=== PATIENT | female | born 1990 | race Caucasian/White ===

== ENCOUNTER 2016-11-16 20:41 | Emergency (ER) | payer OTHER ==
[~2016-11-16] VITALS: Ht 175.3 cm; Wt 113.6 kg
[~2016-11-16 20:41] MED LIST: AMOX-366 PO; PRE20 PO
[2016-11-16 20:54] VITALS: BP 146/94; PULSE 87; RESP 20; O2SAT 100
--- NOTE | 2016-11-16 21:15 | ED.REPORT ---
HPI-Back Pain Under 40 Date of Service Nov 16, 2016 ED Provider: Dr. Eusebio Recinos M.D. A 26 year old female with a history of asthma presents to the ED with lower back pain onset two weeks ago, two days after heavy lifting. The pain initially affected her ambulation but has improved since onset. The patient denies leg numbness, leg tingling, bowel incontinence, urinary incontinence, fever, nausea , vomiting, or other symptoms. She has been seeing a chiropractor intermittently but needs a work note from a physician. She has also been taking Ibuprofen and applying heat pads, with moderate relief. Nursing Notes Stated Complaint: LOW BACK PAIN NO INJURY Chief Complaint: Back Pain or Injury Nursing Notes Reviewed: Yes Allergies: Coded Allergies: No Known Allergies (Verified Allergy, Unknown, 05/13/14) Uncoded Allergies: CITRIC (Adverse Reaction, Unknown, 05/13/14) Scheduled Amoxicillin/Clav K 875-125 mg (Augmentin 875-125 mg) 1 Each Tablet 1 TABLET PO BID Cephalexin (Keflex) 500 Mg Capsule 500 MG PO QID Prednisone (PredniSONE) 20 Mg Tablet 20 MG PO take 2 daily (40mg) Scheduled PRN Cyclobenzaprine (Cyclobenzaprine) 5 Mg Tablet 5 MG PO HS PRN PRN Spasm General Time Seen by MD: 21:14 Chief Complaint Lumbar pain Hx Obtained From: Patient Arrived By: Walk-in Sudden in Onset?: Yes Onset Occurred: More than a week ago... (2 weeks) Symptom Duration: Since onset Caused by: Lifting Location: : Perispinal lumbar Quality: Painful Severity: Current: Moderate Severity: Maximum: Moderate Associated with: Denies: Fever, Inability to walk, Incontinence bladder, Incontinence bowel, Nausea, Numbness both low ext, Tingling left lower ext, Tingling right lower ext, Vomiting, Weakness both lower ext Relieved by: Ibuprofen, Heat Recent Healthcare: No recent doctor visit Past Medical History Past Medical History Obesity Allergic rashes Reports: Asthma Past Surgical History No surgeries Smoking History Light Tobacco Smoker Social History Lives with Mom Alcohol Use: "Social" Drug Use: Denies drug use Occupation [employer] Ambulatory Status Independent Review of Systems Review of Systems Note: - Lower extremity paresthesias Constitutional: Denies: Fever Respiratory: Denies: Non-productive cough, Shortness of breath GI: Denies: Nausea, Vomiting Musculoskeletal: Reports: Back pain (Low) Neurologic: Denies: Bladder dysfunction, Bowel dysfunction, Numbness, Weakness Complete sys rev & neg: except as marked. Physical Exam Initial Vital Signs Vital Signs (First) Date Time Temp Pulse Resp B/P Pulse Ox O2 Delivery O2 Flow Rate FiO2 11/16/16 20:54 37 87 20 146/94 100 11/16/16 23:17 Room Air Initial VS: Reviewed Head / Eyes: Atraumatic, Normocephalic ENT: Conjunctiva normal, No scleral icterus Skin: Warm, Dry, No cyanosis Psychiatric: Mood/affect normal, Behavior normal, Normal thought content General/Constitutional: Awake, Alert Back: No midline vertebral tend Flank / Spine / Paraspinal: Positive: Lumbar paraspinal tend... (Diffuse) Neurologic: Oriented X3, Speech NL Strength 5/5 bilateral lower extremities Interpretation & Diagnostics URINE TEST: Negative URINE DIPSTICK: 1.025 sp gravity 5 pH + Leukocyte esterase Trace Protein Normal Glucose Normal Urobilinogen ~250Ery/ml Occult Blood Otherwise Negative Lab Results Interpretation Test 11/16/16 22:30 Urine Color Yellow (YELLOW) Urine Appearance Slightly cloudy Urine pH 5.5 (5.0-8.0) Urine Specific [place] 1.030 (1.003-1.035) Urine Protein Negativemg/dL (NEG,TRACE) Urine Glucose (UA) Negativemg/dL (NEGATIVE) Urine Ketones Negativemg/dL (NEGATIVE) Urine Occult Blood Large (NEGATIVE) Urine Nitrite Negative (NEGATIVE) Urine Bilirubin Negative (NEGATIVE) Urine Urobilinogen Normalmg/dL (NORMAL) Urine Leukocyte Esterase Trace (NEGATIVE) Urine RBC 3-10/hpf (0-2) Urine WBC 6-10/hpf (0-5) Urine Epithelial Cells Moderate/hpf (NONE-MOD) Urine Crystals None seen (NONE SEEN) Urine Bacteria Moderate/hpf (NONE-FEW) Urine Hyaline Casts None/lpf (NONE) Urine Granular Casts None seen (NONE SEEN) Urine Waxy Casts None seen (NONE SEEN) Urine Red Blood Cell Casts None seen (NONE SEEN) Urine White Blood Cell Casts None seen (NONE SEEN) Urine Mucus Present (None Seen) Urine Trichomonas None seen (NONE SEEN) Urine Yeast None (NONE SEEN) Urinalysis Comment None Urine Culture Reflexed Indicated Hold Urine Received (Received) Re-Eval/Medical Decision Med Decision/Clinical Course 26-year-old female with low back pain 2 weeks after lifting heavy objects. It is improving. Diffuse low back tenderness. No midline tenderness. Neurological exam is normal. No red flag symptoms. Urine is positive for leukocytes. We will treat for UTI. More likely the back pain is related to the heavy lifting. Recommend no heavy lifting 2 weeks or until pain resolves. Flexeril as needed for muscle spasms. Ibuprofen as needed for pain. Follow-up with primary doctor 2-3 days as needed. Re-Evaluation/Progress : Time of Eval: 22:47 Patient Status: Condition improved Re-Evaluation/Progress Note: Discussed with patient lab results, diagnosis, and plan for discharge. Follow-up and return to the ER instructions given. Patient agrees with plan for care and all questions were addressed. Counseled Regarding: Diagnosis, Need for follow-up, When/why to return to ED Discharge & Departure Impression: Primary Impression: Low back pain Chronicity: acute Back pain laterality: unspecified Sciatica presence: without sciatica Qualified Code: M54.5 - Low back pain Additional Impression: UTI (urinary tract infection) Urinary tract infection type: acute cystitis Hematuria presence: without hematuria Qualified Code: N30.00 - Acute cystitis without hematuria Disposition: Home All VS Reviewed: Yes Condition: Improved Patient Instructions: Low Back Strain (ED) Additional Instructions: Thank you for entrusting us with your care. Please take Keflex as prescribed. Also take Flexeril as prescribed, as needed for pain in the evenings. Do not drink alcohol or drive while taking Flexeril. No heavy lifting greater than 10 lbs for the next two weeks. Call your primary care provider tomorrow for a follow-up appointment in two weeks if your symptoms have not improved. Return to the ER with any new or worsening symptoms including worsening back pain, numbness, leg weakness, leg tingling, or fevers. Referrals: Klevin Hollis MD (PCP) Raheem Attestation Portions of this note were transcribed by Risa Zhou. I, Dr. Recinos, personally performed the history, physical exam, and medical decision-making; I reviewed and confirmed the accuracy of the information in the transcribed note. Signed by: Raheem Cote, 11/16/2016, 23:50 copies to: Kelvin Hollis MD, Ben M MD Nov 16, 2016 21:15 RISA ZHOU Nov 16, 2016 21:38
[2016-11-16] MEDS ORDERED: CEPH-512 PO (22:44)
[2016-11-16] MEDS ORDERED: CYCL5TAB PO (22:45)
[2016-11-16 22:49] LABS: APPEARANCE,URINE SLIGHTLY CLOUDY (CLEAR,HAZY); COLOR,URINE YELLOW (YELLOW)
[2016-11-16 22:50] LABS: OCCULT BLOOD,URINE LARGE (NEGATIVE); PH,URINE 5.5 (5.0-8.0); UROBILINOGEN,URINE NORMAL (NORMAL)
[2016-11-16 23:17] VITALS: BP 132/76; PULSE 71; RESP 18; O2SAT 99
== END 2016-11-16 23:15 | disposition home or self-care (01) ==
LOC: SED 20:41
DX: M54.5 Low back pain (principal); X50.0XXA Overexertion from strenuous movement or load, initial encounter; Y93.89 Activity, other specified; Y92.89 Other specified places as the place of occurrence of the external cause; Y99.8 Other external cause status; N30.00 Acute cystitis without hematuria; J45.909 Unspecified asthma, uncomplicated

== ENCOUNTER 2016-11-27 22:30 | Emergency (ER) | payer OTHER ==
[~2016-11-27] VITALS: Ht 172.7 cm; Wt 113.6 kg
[~2016-11-27 22:30] MED LIST changes: +CEPH-512 PO; +CYCL5TAB PO
[2016-11-27 22:32] VITALS: BP 146/102; PULSE 100; RESP 20; O2SAT 99
--- NOTE | 2016-11-27 23:01 | ED.REPORT ---
HPI-General Illness Date of Service Nov 27, 2016 ED Provider: Dr. Rahman A 26 year old female presents to the ED complaining of lower back pain exacerbated by bending onset 1 week ago. She requests a work note. She was seen at ED 1 week ago and was diagnosed with back strain. Nursing Notes Stated Complaint: LOW BACK PAIN/DOCTORS NOTE Chief Complaint: Wound Recheck/Suture Removal Nursing Notes Reviewed: Yes Allergies: Coded Allergies: No Known Allergies (Verified Allergy, Unknown, 05/13/14) Uncoded Allergies: CITRIC (Adverse Reaction, Unknown, 05/13/14) Scheduled Amoxicillin/Clav K 875-125 mg (Augmentin 875-125 mg) 1 Each Tablet 1 TABLET PO BID Cephalexin (Keflex) 500 Mg Capsule 500 MG PO QID Prednisone (PredniSONE) 20 Mg Tablet 20 MG PO take 2 daily (40mg) Scheduled PRN Cyclobenzaprine (Cyclobenzaprine) 5 Mg Tablet 5 MG PO HS PRN PRN Spasm General Time Seen by MD: 23:01 Chief Complaint Back pain Hx Obtained From: Patient Arrived By: Walk-in Sudden in Onset?: No Onset Occurred: 1 week ago Symptom Duration: Since onset Severity: Current: Moderate Severity: Maximum: Moderate Recent Healthcare: Recent doctor visit Similar Sx Previous: No Past Medical History Past Medical History Visited ED 1 week ago and was diagnosed with back sprain. Obesity Allergic rashes Reports: Asthma Past Surgical History none reported. Smoking History Light Tobacco Smoker Social History Lives with Mom Alcohol Use: "Social" Drug Use: Denies drug use Occupation [employer] Ambulatory Status Independent Review of Systems Full Review of Systems Constitutional: Denies: Chills, Fever Respiratory: Denies: Non-productive cough GI: Denies: Abdominal pain Musculoskeletal: Reports: Back pain Complete sys rev & neg: except as marked. Physical Exam Vital Signs Vital Signs Date Time Temp Pulse Resp B/P Pulse Ox O2 Delivery O2 Flow Rate FiO2 11/27/16 22:32 35.7 100 20 146/102 99 Room Air Initial VS: Reviewed General/Constitutional: Awake, Alert Head / Eyes: Atraumatic, Normocephalic, PERRL, EOMI ENT: Atraumatic, Airway patent Neck: Atraumatic, Full range of motion Respiratory / Chest: Atraumatic, Breath sounds NL, Breath sounds = bilat, No respiratory distress, No rales, No rhonchi, No wheezing Cardiovascular: Heart rate NL, Regular rhythm, Heart sounds NL, No gallop, No murmurs, No rubs Abdomen: Atraumatic, No guarding, No rebound Pain with bending and decreasd ROM of lumbar vertebra. Upper Extremities Upper Extremity / MS: No swelling, No edema Lower Extremity / Pelvis / MS: No swelling, No edema Skin: Atraumatic, Color NL, Warm, Dry Neurologic: Oriented X3, Speech NL Re-Eval/Medical Decision Source of Hx: Old records Time of Eval: 23:01 Evaluation: Capillary refill normal Re-Evaluation/Progress Note: Explained diagnosis, and plan for discharge. Patient understands and agrees with the plan. All questions addressed. Counseled Regarding: Diagnosis, Need for follow-up, When/why to return to ED Discharge & Departure Primary Impression: Low back pain Chronicity: acute Back pain laterality: midline Sciatica presence: without sciatica Qualified Code: M54.5 - Low back pain Disposition: Home Discharge Condition All VS Reviewed: Yes Condition: Stable Patient Instructions: Acute Low Back Pain (DC), Low Back Strain (GEN) Additional Instructions: Continue with light duty. No bending over and no lifting more than 10 pounds. Keep your outpatient follow-up. Tylenol or Motrin as directed for pain. Read the aftercare instructions given. Return if any problems or any worsening symptoms. Your blood pressure is elevated during your visit today. recheck your blood pressure regularly and discuss these numbers with your primary care physician at follow-up. Referrals: Kelvin Hollis MD (PCP) Scribe Attestation Portions of this note were transcribed by Marco Kim. I, Dr. Rahman personally performed the history, physical exam and medical decision-making; I reviewed and confirmed the accuracy of the information in the transcribed note. Signed by: Raheem Cho, 11/28/2016, 0151. copies to: Kelvin Hollis MD, Todd P DO Nov 27, 2016 23:01 Marco Kim Nov 28, 2016 00:04
== END 2016-11-27 23:48 | disposition home or self-care (01) ==
LOC: SED 22:30
DX: M54.5 Low back pain (principal); X50.1XXA Overexertion from prolonged static or awkward postures, initial encounter; Y92.9 Unspecified place or not applicable; Y93.89 Activity, other specified; Y99.8 Other external cause status; J45.909 Unspecified asthma, uncomplicated; Z87.891 Personal history of nicotine dependence

== ENCOUNTER 2017-04-29 23:53 | Emergency (ER) | payer OTHER ==
[~2017-04-29] VITALS: Ht 172.7 cm; Wt 127.3 kg
[2017-04-30] VITALS: BP 149/81; PULSE 105; RESP 18; O2SAT 100
[2017-04-30] MEDS ORDERED: Amoxicillin-Clav 875-125 mg Tablet PO ONE (00:55)
--- NOTE | 2017-04-30 00:56 | ED.REPORT ---
HPI-Sore Throat ONLY HPI/PE done Apr 30, 2017 ED Provider: Aniceto Rahman DO A 26 year old female with a history of allergic rashes and asthma presents to the ED complaining of a sore throat. The pt has been experiencing "flu-like symptoms" including sore throat, congestion with yellow/green mucus and sinus pressure since 04/20/2017. The sinus pressure is concentrated in the left frontal area. The pt became concerned today because she noticed that there were bloody streaks in her mucus when she blew her nose. Nursing Notes Stated Complaint: SORE THROAT Chief Complaint: FLU/Cold Symptoms Nursing Notes Reviewed: Yes Allergies: Coded Allergies: methotrexate (Verified Allergy, Unknown, 04/30/17) Uncoded Allergies: CITRIC (Adverse Reaction, Unknown, 05/13/14) Scheduled Amoxicillin/Clav K 875-125 mg (Augmentin 875-125 mg) 1 Each Tablet 1 TABLET PO BID Cephalexin (Keflex) 500 Mg Capsule 500 MG PO QID Prednisone (PredniSONE) 20 Mg Tablet 20 MG PO take 2 daily (40mg) Scheduled PRN Cyclobenzaprine (Cyclobenzaprine) 5 Mg Tablet 5 MG PO HS PRN PRN Spasm General Time Seen by MD: 00:11 Chief Complaint Sore throat Hx Obtained From: Patient Arrived By: Walk-in Onset Occurred: More than a week ago... Symptom Duration: Since onset Recent Healthcare: Recent doctor visit Similar Sx Previous: No Past Medical History Past Medical History Obesity Allergic rashes Reports: Asthma Past Surgical History None reported Smoking History Light Tobacco Smoker Social History Lives with Mom Alcohol Use: "Social" Drug Use: Denies drug use Occupation [email or web address] Ambulatory Status Independent Review of Systems Review of Systems Note: sinus pressure blood-streaked mucus Ears / Nose / Throat: Reports: Nasal congestion, Sore throat Respiratory: Denies: Shortness of breath GI: Denies: Abdominal pain, Vomiting Skin: Denies Rash Complete sys rev & neg: except as marked. Musculoskeletal: Denies: Back pain, Neck pain Physical Exam Initial Vital Signs Vital Signs (First) Date Time Temp Pulse Resp B/P Pulse Ox O2 Delivery O2 Flow Rate FiO2 04/30/17 00:00 36.8 105 18 149/81 100 Room Air Initial VS: Reviewed General/Constitutional: Awake, Alert ENT: Airway patent, Mucous membranes moist turbinate hypertrophy exudative tonsils bilaterally mucopurulent discharge from nose Neck: Atraumatic, Supple, Full range of motion Head / Eyes: Atraumatic, Normocephalic, PERRL, EOMI Respiratory / Chest: Atraumatic, Breath sounds NL, Breath sounds = bilat, No respiratory distress Cardiovascular: Heart rate NL, Regular rhythm, Heart sounds NL Abdomen: Atraumatic, Soft, Non-tender Skin: Color NL, No rash, Warm, Dry Neurologic: Oriented X3, Speech NL, No motor deficits, No sensory deficits Back: Atraumatic, Full range of motion Upper Extremity / MS: Atraumatic, Full range of motion Lower Extremity / Pelvis / MS: Atraumatic, Full range of motion Psychiatric: Affect NL, Mood NL Interpretation & Diagnostics Pulse Oximetry Interpretation Pulse Oximetry Interpretation: 100% on room air Pulse Oximetry: Pulse Ox normal Re-Eval/Medical Decision Med Decision/Clinical Course Sinusitis for greater than a week. I suspect bacterial sinusitis. We will treat with a course of Augmentin. Exudative tonsillitis is present as well. Source of Hx: Old records Re-Evaluation/Progress : Time of Eval: 00:55 Patient Status: Condition improved Re-Evaluation/Progress Note: Pt rechecked, who is comfortable. The diagnosis and plan for discharge are discussed. The pt understands and agrees with the plan. All questions are addressed at this time. Counseled Regarding: Diagnosis, Need for follow-up, When/why to return to ED Discharge & Departure Primary Impression: Exudative tonsillitis Additional Impression: Sinusitis Sinusitis location: frontal Chronicity: acute Recurrence: non-recurrent Qualified Code: J01.10 - Acute frontal sinusitis, unspecified Disposition: Home Discharge Condition All VS Reviewed: Yes Condition: Stable Patient Instructions: Sinusitis (ED), Tonsillitis (ED) Additional Instructions: Take Augmentin twice daily for ten days. You may take Sudafed for the congestion. Take one to two [place] every six hours as needed for severe pain. Do not drink, drive or consume acetaminophen while taking the [place]. Call your primary care physician to arrange a follow up appointment next week for further evaluation. Return to the emergency department if you develop any new or worsening symptoms. Referrals: Kelvin Hollis MD (PCP) Scribe Attestation Portions of this note were transcribed by Ketty Hwang. I, Dr. Rahman personally performed the history, physical exam and medical decision-making; I reviewed and confirmed the accuracy of the information in the transcribed note. copies to: Kelvin Hollis MD, Todd P DO Apr 30, 2017 00:56 KETTY HWANG Apr 30, 2017 00:59
[2017-04-30] MEDS ORDERED: Dexamethasone 20 mg/2 mL Oral Solution PO ONE (01:00)
== END 2017-04-30 01:16 | disposition home or self-care (01) ==
LOC: SED 23:53
DX: J03.90 Acute tonsillitis, unspecified (principal); J32.9 Chronic sinusitis, unspecified; J45.909 Unspecified asthma, uncomplicated; Z88.8 Allergy status to other drugs, medicaments and biological substances